=== PATIENT | female | born 1990 | race Caucasian/White ===

== ENCOUNTER → 2020-04-04 | Outpatient (CLI) | payer BC ==
[~2020-04-04] MED LIST: IBU600 MG PO; PERCOCET 325 MG1 TA2 PO; PRENATAL
== END ==
LOC: DIA.ED
DX: O24.419 Gestational diabetes mellitus in pregnancy, unspecified control (principal)
CPT/HCPCS: G0108

== ENCOUNTER 2020-06-04 18:34 | Inpatient (IN) | payer BC ==
[~2020-06-04] VITALS: Ht 160 cm; Wt 75.5 kg
[2020-06-04] VITALS (10 sets, daily range): BP systolic 111–128; BP diastolic 58–76; PULSE 75–120; TEMP 98–98.2
[2020-06-04 20:51] LABS: BASO # 0.1 (0.0-0.2); BASO % 0.4 % (0.0-2.0); EOS # 0.1 (0.0-0.7); EOS % 0.5 % (0-4.0); GRAN # 12.7 (1.4-6.5); GRAN % 74.4 % (42.2-75.2); HEMATOCRIT 41.5 % (37.0-47.0); HEMOGLOBIN 14.2 g/dl (12.5-16.0); LYMPH # 2.8 (1.2-3.4); LYMPH % 16.4 % (20.0-51.0); MEAN CELL VOLUME 88 fl (80.0-100.0); MEAN CORPUSCULAR HEMOGLOBIN 30 pg (27.0-31.0); MEAN CORPUSCULAR HGB CONC 34 g/dl (33.0-37.0); MEAN PLATELET VOLUME 11.6 fl (7.4-10.4); MONO # 1.3 (0.1-0.6); MONO % 7.5 % (1.7-9.3); PLATELET COUNT 293 K/mm3 (130-400); RED BLOOD COUNT 4.71 M/mm3 (4.10-5.30)
[2020-06-05] VITALS (20 sets, daily range): BP systolic 90–141; BP diastolic 51–76; PULSE 75–120; TEMP 97.9–98.9
[2020-06-06 08:25] VITALS: BP 112/70; PULSE 86
== END 2020-06-06 11:05 | disposition home or self-care (01) | DRG 807 ==
LOC: LDRO 18:34 → LDR 20:01 → OB 20:01
PROVIDERS: Obstetrics & Gynecology; ADMIT Student in an Organized Health Care Education/Training Program
PROC: 10E0XZZ Delivery of Products of Conception, External Approach (ICD-10-PCS; principal; 2020-06-05)
DX: O24.420 Gestational diabetes mellitus in childbirth, diet controlled (principal); Z37.0 Single live birth; Z3A.38 38 weeks gestation of pregnancy; O76 Abnormality in fetal heart rate and rhythm complicating labor and delivery
CPT/HCPCS: J2405; J2590; J7120

== ENCOUNTER 2022-06-16 10:46 | Inpatient (IN) | payer BC ==
[~2022-06-16] VITALS: Ht 160 cm; Wt 80.0 kg
[2022-06-18] VITALS (13 sets, daily range): BP systolic 109–146; BP diastolic 58–84; PULSE 71–107; TEMP 97.9–98.6
--- NOTE | 2022-06-18 03:40 | NUR ---
G3L2. 39.1. Ambulatory to LDR 4 with spouse. Clean gown on. EFM and TOCO explained and applied. Pt states her water broke around 0300, clear fluid noted. Pt denies any regular contractions or vaginal bleeding. Reports good movement. plan of care explained to pt and spouse who verbalize their understanding. 401: called and updated on pt's status. See physican notification. Pt updated on plan of care.
[2022-06-18 04:54] LABS: BASO # 0.1 K/mm3 (0.0-0.2); BASO % 0.6 % (0.0-2.0); EOS # 0.1 K/mm3 (0.0-0.7); EOS % 0.8 % (0.0-4.0); GRAN # 7.9 K/mm3 (1.4-6.5); GRAN % 64.6 % (42.2-75.2); HEMATOCRIT 37.9 % (37.0-47.0); HEMOGLOBIN 12.8 g/dl (12.5-16.0); LYMPH # 3.2 K/mm3 (1.2-3.4); LYMPH % 25.9 % (20.0-51.0); MEAN CELL VOLUME 87 fl (80.0-100.0); MEAN CORPUSCULAR HEMOGLOBIN 29 pg (27-31); MEAN CORPUSCULAR HGB CONC 34 g/dl (33.0-37.0); MEAN PLATELET VOLUME 10.9 fl (7.4-10.4); MONO # 0.9 K/mm3 (0.1-0.6); PLATELET COUNT 292 K/mm3 (130-400); RED BLOOD COUNT 4.38 M/mm3 (4.10-5.30); REDCELL DISTRIBUTION WIDTH-CV 12.6 % (11.5-14.5)
--- NOTE | 2022-06-18 09:35 | NUR ---
KIMBERLY HERE TO PLACE EPIDURAL. PT SITTING AT BEDSIDE. O2 MONITOR PLACED. FLUID BOLUS OF LR. PATIENT BREATHING THROUGH CONTRACTIONS. EPIDURAL PLACED, SINGLE SHOT AT 0944. PT TOLERATED WELL. PT PLACED IN WEDGE LEFT SEMI FOWLERS AT 0950. BABY HAVING INTERMITTENT VARIABLES. PLACED IN LEFT LATERAL. PATIENT FEELING PRESSURE. SVE AT 0955: 9.5/100/0. [facility] CALLED. NURSERY AND CHARGE UPDATED. [facility] HERE AT 0959. PUSHING AT 1001. LIVING FEMALE DELIVERED SPONTANEOULSY AT 1010. WARM DRIED AND STIMULATED. FATHER OF THE BABY CUT CORD AT 1012. APGARS 7. 9. 9. PATIENT TOLERATED WELL. PLACENTA DELIVERED AT 1015. PITOCIN BOLUSED AFTER PLACENTAL DELIVERY. RED TAMMIE USED BY DR PIZANO TO DRAIN BLADDER. TO LACERATION OR REPAIR. BLEEDING MINIMAL AND WELL CONTROLLED. BABY SKIN TO SKIN. MOM AND BABY RECOVERING WELL.
--- NOTE | 2022-06-18 13:45 | NUR ---
THIS TOURIST CAMP ATTENDANT ASSUMES CARE OF PATIENT FROM MAJO GARCIA RN.
[2022-06-19 08:10] VITALS: BP 119/65; PULSE 73; TEMP 98
[2022-06-19] MEDS ORDERED: IBU800 M1 PO (09:07)
--- NOTE | 2022-06-19 10:35 | NUR ---
Initial visit; Patient thanked Bi Developer for offering congratulations and God's blessings for the of her daughter. Bi Developer also was blessed to offer 'Special Blessings' for her daughter.
--- NOTE | 2022-06-19 12:51 | NUR ---
1220 DISCHARGE INFORMATION PROVIDED. PT VERBALIZES UNDERSTANDING FOR SELF AND . PLACED IN CARSEAT AND STRAPS CHECKED. CARRIED OUT TO VEHICLE BY FATHER. MOTHER WALKED TO CAR. THIS RN ESCORTS FAMILY TO VEHICLE.
== END 2022-06-19 12:20 | disposition home or self-care (01) | DRG 805 ==
LOC: LDR 06-18 03:34 → OB 06-18 10:42
PROVIDERS: Obstetrics & Gynecology; ADMIT Student in an Organized Health Care Education/Training Program
PROC: 10E0XZZ Delivery of Products of Conception, External Approach (ICD-10-PCS; principal; 2022-06-18)
DX: O99.344 Other mental disorders complicating childbirth (principal); O41.1230 Chorioamnionitis, third trimester, not applicable or unspecified; Z37.0 Single live birth; O68 Labor and delivery complicated by abnormality of fetal acid-base balance; O43.893 Other placental disorders, third trimester; F41.9 Anxiety disorder, unspecified; O69.81X0 Labor and delivery complicated by cord around neck, without compression, not applicable or unspecified; Z3A.39 39 weeks gestation of pregnancy
CPT/HCPCS: J2590; J7120

== ENCOUNTER 2024-02-26 09:31 | Inpatient (IN) | payer BC ==
[~2024-02-26] VITALS: Ht 160 cm; Wt 85.5 kg
[2024-02-26] VITALS (25 sets, daily range): BP systolic 94–140; BP diastolic 43–115; PULSE 66–172; TEMP 98–98.6
[~2024-02-26 09:31] MED LIST changes: +IBU800 M1 PO
--- NOTE | 2024-02-26 09:40 | NUR ---
0952 PT AMBULATORY TO UNIT WITH SPOUSE, CHANGED INTO HOSPITAL GOWN AND ORIENTED TO ROOM. PT REPORTS VAGINAL BLEEDING, DENIES LEAKING OF FLUID, REPORTS POSITIVE MOVEMENT, AND CAN "FEEL CONTRACTIONS SOMETIMES BUT THEY ARE IRREGULAR AND NOT ENOUGH TO COUNT IN BETWEEN." EFM CAT 1, TAY EVERY 4-6 MINUTES. PT REPORTS THE CONTRACTIONS "THEY HURT AND I CAN FEEL PRESSURE IN MY LOWER BACK BUT IT IS NOT UNBEARABLE." PT DESCRIBES VAGINAL BLEEDING STARTING THIS MORNING, REPORTS SHE NEVER SATURATED A PAD BUT THERE WERE "SOME SMALL CLOTS." THIS RN OBERVES SCANT BLOOD OUTSIDE THE VAGINA BUT NO ACTIVE BLEEDING. PT VS STABLE, AWAKE AND ALERT X3, SPOUSE SUPPORTIVE AT BEDSIDE. PT ORIENTED TO PLAN OF CARE.
--- NOTE | 2024-02-26 09:45 | NUR ---
0945 EFM AND TOCO MONITOR UNABLE TO INFLATE BLOOD PRESSURE CUFF, THIS RN USES DYNAMAP TO ASSESS PT VS, VS STABLE.
[2024-02-26] MEDS ORDERED: LR 1,000 ML IV SCH (10:30)
[2024-02-26] MEDS ORDERED: LR 1,000 ML IV PRN (10:30)
[2024-02-26] MEDS ORDERED: Ondansetron 4 MG/2 ML VIAL IV PRN (11:00)
[2024-02-26] MEDS ORDERED: diphenhydrAMINE 50 MG/ML 1 ML VIAL IV PRN (11:00)
[2024-02-26] MEDS ORDERED: LR 500 ML IV PRN (11:00)
[2024-02-26] MEDS ORDERED: LR 1,000 ML IV ONE (11:00)
[2024-02-26] MEDS ORDERED: ePHEDrine 50 MG/10 ML VIAL IV PRN (11:00)
[2024-02-26] MEDS ORDERED: Naloxone 0.4 MG/ML VIAL IV PRN ×2 (11:00→17:30)
[2024-02-26] MEDS ORDERED: diphenhydrAMINE 25 MG CAP PO PRN (11:00)
--- NOTE | 2024-02-26 11:21 | NUR ---
1102 IV ACCESS ATTEMPTED ONCE BY 2 RN, UNSUCCESSFUL ATTEMPTS. 1119 TRICIA EXPLOSIVE OPERATOR GRENADE NOTIFIED OF IV ATTEMPTS, AT PT BEDSIDE TO ATTEMPT IV ACCESS. 1121 20 GAUGE IV BEGUN PER TRICIA EXPLOSIVE OPERATOR GRENADE
[2024-02-26 11:40] LABS: HEMATOCRIT 40.9 % (37.0-47.0); HEMOGLOBIN 13.9 g/dl (12.5-16.0); MEAN CELL VOLUME 89 fl (80.0-100.0); MEAN CORPUSCULAR HEMOGLOBIN 30 pg (27-31); MEAN CORPUSCULAR HGB CONC 34 g/dl (33.0-37.0); MEAN PLATELET VOLUME 11.3 fl (7.4-10.4); PLATELET COUNT 251 K/mm3 (130-400); RED BLOOD COUNT 4.59 M/mm3 (4.10-5.30); REDCELL DISTRIBUTION WIDTH-CV 13.1 % (11.5-14.5)
[2024-02-26 12:47] LABS: BAND 2 % (0-10); LYMPHOCYTE 17 % (20.0-51.0); NEUTROPHILS 71 % (42.0-75.2)
--- NOTE | 2024-02-26 13:25 | NUR ---
AT PT BEDSIDE, SVE 5-6/80/-1, AROM CLEAR FLUID. PT TOLERATED WELL, PT VS STABLE, EFM CAT 1. PT SPOUSE SUPPORTIVE AT BEDSIDE
--- NOTE | 2024-02-26 14:32 | NUR ---
[id number] 4 MINUTE PROLONGED LATE DECELERATION IN FHR, PT VS STABLE, PT POSITION CHANGED FROM STANDING UPRIGHT TO BEDREST ON LEFT LATERAL. PT UNDERSTANDING OF PLAN OF CARE. 1440 SVE /-1 PER THIS RN, NOTIFIED OF PROLONGED DECELERATION AND SVE. FHR RECOVERED TO BASELINE 130, NO ACCELS, NO DECELS, MINIMAL VARIABILITY, FLUID BOLUS CURRENTLY INFUSING. CONTINUING PLAN OF CARE. PT SPOUSE SUPPORTIVE AT BEDSIDE.
--- NOTE | 2024-02-26 15:30 | NUR ---
PT ASKS FOR TRICIA MINE ENGINEERING SUPERVISOR FOR EPIDURAL, TRICIA NOTIFIED AND ON HIS WAY. THIS RN REMAINS SUPPORTIVE AT PT BEDSIDE EDUCATING PT ON BREATHING TECHNIQUES AND LABOR POSITIONS TO HELP WITH PAIN DURING CONTRACTIONS.
[2024-02-26] MEDS ORDERED: Loratadine 10 MG TAB PO PRN (17:30)
[2024-02-26] MEDS ORDERED: Acetaminophen 500 MG TAB PO SCH (17:30)
[2024-02-26] MEDS ORDERED: Witch Hazel 50% Pads Bulk TUB TP PRN (17:30)
[2024-02-26] MEDS ORDERED: Tdap Vaccine 0.5 ML SYRINGE IM SCH (17:30)
[2024-02-26] MEDS ORDERED: Magnes Hydrox (MOM) 80 MG/ML 30 ML CUP PO PRN (17:30)
[2024-02-26] MEDS ORDERED: Ibuprofen 800 MG TAB PO SCH (17:30)
[2024-02-26] MEDS ORDERED: Phenylephrine/Mineral Oil/Petrolatum 57 GM TUBE RC PRN (17:30)
[2024-02-26] MEDS ORDERED: Mag/Al Hydrox/Simeth Susp 30 ML CUP PO PRN (17:30)
[2024-02-26] MEDS ORDERED: Measles/Mumps/Rubella Virus Vaccine Live w Diluent 0.5 ML VIAL SQ SCH (17:30)
[2024-02-26] MEDS ORDERED: LR & Oxytocin 500 ML IV SCH (18:00)
--- NOTE | 2024-02-26 18:11 | NUR ---
1620 TRICIA STEAM HAND AT PT BEDSIDE EDUCATING PT AND PT SPOUSE ON EPIDURAL PROCEDURE, PT SITTING ON EDGE OF BED. PT VS STABLE, SPOUSE SUPPORTIVE AT BEDSIDE. PT AWAKE AND ALERT X3 1628 SINGLE SHOT ADMINISTERED PER TRICIA STEAM HAND. PT TOLERATED WELL. PT REPOSITIONED WEDGE LEFT, REPORTS FEELING PRESSURE "IN MY BOTTOM BUT NO PAIN." PT VS STABLE, AWAKE AND ALERT X3
--- NOTE | 2024-02-26 19:16 | NUR ---
PT CHANGING HER POSITION FREQUENTLY DUE TO CONTRACTION PAIN, VS INCREASED 130/115, HR 107. PT AWAKE AND ALERT X3.
--- NOTE | 2024-02-26 19:31 | NUR ---
UNABLE TO TRACE PT VS DUE TO MATERNAL POSITION AND HABITUS, THIS RN AT PT BEDSIDE ATTEMPTING TO TRACE, PT AWAKE AND ALERT AND REPORTS LARGE PAIN FROM CONTRACTIONS, HARD TO STAY STILL.
--- NOTE | 2024-02-26 19:39 | NUR ---
165 SVE /+2, ROOM SET FOR PUSHING, PT UNDERSTANDING OF PLAN OF CARE, NURSERY NURSE AND CHARGE NURSE NOTIFIED OF PT SVE. 165 BED BROKEN DOWN FOR DELIVERY, NURSERY AND CHARGE NURSE AT BEDSIDE. PT BEGINS PUSHING. PT VS STABLE 165 OF VIABLE MALE , PLACED ON MATERNAL CHEST AND NURSERY NURSE ASSUMES CARE OF . 1700 CORD CUT AND CLAMPED PER 170 OF PLACENTA PER . PITOCIN INFUSION BEGUN, REPORTS INTACT PERINEUM. PT CLEANED AND REPOSITIONED COMFORTABLY AFTER DELIVERY. PT FUNDUS FIRM AT UMBILICUS, SCANT LOCHIA, NO CLOTS, VS STABLE. ROOM CLEANED AFTER DELIVERY. ICE PACK PAD PLACED ON PT PERINEUM.
--- NOTE | 2024-02-26 20:00 | NUR ---
Up to bathroom, voids good amount. Performs own pericare. Ambulatory to room.
[2024-02-26] MEDS ORDERED: traZODone 50 MG TAB PO PRN (21:00)
[2024-02-27 01:45] VITALS: BP 116/60; PULSE 68; TEMP 98
[2024-02-27 07:45] VITALS: BP 123/79; PULSE 72; TEMP 97.9
[2024-02-27] MEDS ORDERED: Sennosides/Docusate 8.6-50 MG TAB PO SCH (08:00)
[2024-02-27 17:35] VITALS: BP 114/72; PULSE 74; TEMP 97.8
== END 2024-02-27 18:34 | disposition home or self-care (01) | DRG 807 ==
LOC: LDRO 09:31 → LDR 10:27 → OB 21:56
PROVIDERS: ADMIT Student in an Organized Health Care Education/Training Program
PROC: 10E0XZZ Delivery of Products of Conception, External Approach (ICD-10-PCS; principal; 2024-02-26)
PROC: 10907ZC Drainage of Amniotic Fluid, Therapeutic from Products of Conception, Via Natural or Artificial Opening (ICD-10-PCS; 2024-02-26)
DX: O80 Encounter for full-term uncomplicated delivery (principal); Z37.0 Single live birth; Z3A.38 38 weeks gestation of pregnancy; O69.81X0 Labor and delivery complicated by cord around neck, without compression, not applicable or unspecified
CPT/HCPCS: J2795